=== PATIENT | female | born 1970 | race Caucasian/White ===

== ENCOUNTER 2021-01-25 07:13 | Outpatient (CLI) | payer OTHER, SELFPAY ==
--- NOTE | ~2021-01-25 | US_ITS ---
EXAMINATION: US transvaginal EXAM DATE: 01/25/2021 07:46 INDICATION: Post menopausal bleeding. TECHNIQUE: Pelvic transvaginal sonogram was performed. There are multiple grayscale and Doppler imag es available for interpretation. Comparison is made to prior examination from 07/07/2013. FINDINGS: Uterus measures 7.5 x 3.5 x 4.6 cm, scattered small fibroids measuring up to 1.2 cm. Endom etrial stripe measures 4-5 mm, within normal limits. There is no free pelvic fluid. Right adnexa: The ovary measures 5.2 x 3.1 x 4.4 cm, with complex cystic region measuring 3.9 x 3.0 x 4.0 cm, some layering protein or blood products inside. Differential diagnosis includes hemorrhagic cyst, endometrioma, less likely cystic neoplasm. Ovarian vascular flow confirmed. Left adnexa: The ovary measures 1.8 x 1.2 x 2.0 cm and is morphologically normal. Ovarian vascular fl ow confirmed. IMPRESSION: 1. Small fibroids. Normal endometrial thickness. 2. Right adnexal complex cystic lesion. Recommend 6-12 week follow-up pelvic sonogram. Reviewed, dictated and finalized at location A.
== END 2021-01-25 07:14 ==
PROVIDERS: Visit Provider Nurse Practitioner
DX: N95.0 Postmenopausal bleeding (principal); D25.9 Leiomyoma of uterus, unspecified
CPT/HCPCS: 76830

== ENCOUNTER 2021-03-17 02:43 | Day surgery (SDC) | payer OTHER, SELFPAY ==
[2021-03-12 13:59] VITALS: BMI 25.7
[2021-03-17 07:48] VITALS: BP 122/70; PULSE 72; RESP 20; TEMP 36.3; O2SAT 100
[2021-03-17] MEDS: ACETAMINOPHEN 500 MG TABLET 1000 MG PO (08:16)
[2021-03-17] MEDS: LACTATED RINGERS 1,000 ML 30 ML IV CONT (08:25)
--- NOTE | 2021-03-17 08:34 | WPDANESEPPF ---
Anes - Initial Pre Proc Eval Procedure: Operation Date: 03/17/21 09:45 Proposed Procedures p Hysteroscopy Dilation and Curettage - Francoise Carrizales MD Date/Time: 03/17/21 08:34 Surgeon: Francoise Carrizales MD Pre Op Diagnosis: post menopausal bleeding Patient Data Age: 50 Gender: F Height: 1.63 m Weight: 69.3 kg Last Vital Signs Temp 36.3 C L 03/17/21 07:48 Pulse 72 03/17/21 07:48 Resp 20 03/17/21 07:48 BP 122/70 03/17/21 07:48 Pulse Ox 100 03/17/21 07:48 Allergies Allergy/AdvReac Type Severity Reaction Status Date / Time bee venom protein (honey bee) Allergy Severe Anaphylaxis Verified 03/17/21 08:10 [bees] Cephalosporins Allergy Severe Hives Verified 03/17/21 08:10 Home Medications Medication Instructions Recorded Confirmed Type cyanocobalamin (vitamin B-12) 1,000 mcg IM MONTHLY 03/12/21 03/17/21 History epinephrine 0.3 mg IM PRN PRN 03/12/21 03/12/21 History misoprostol 200 mcg PO DAILY 03/12/21 03/17/21 History Patient hx anesthesia problems: none Family hx anesthesia problems: none PMFSH Past Medical History Medical History (Updated 03/17/21 @ 08:34 by Usman Pizarro MD) Endometriosis Overweight Surgical History Surgical History (Updated 03/17/21 @ 08:35 by Usman Pizarro MD) H/O laparoscopy Social History Social History Smoking status: Never smoker Alcohol intake: current Alcohol use details: 2 PER YEAR Substance use: never Living arrangements: with family Anes - Eval Final PreProcedure Day of Procedure 03/17/21 08:34 Patient weight: overweight Heart: regular rate and rhythm Lungs: clear to auscultation Airway: Mallampati scale class II Neurological: alert and oriented Last oral intake: >/= 8 hours ASA classification: II Emergent: no Anesthetic plan: proceed Anesthesia type and monitoring: general GIVS and standard monitoring Informed Consent: The patient's anesthetic plan and its attendant risks and benefits were discussed with the patient/family/POA. Questions were solicited and answers provided to the satisfaction of the patient/family/POA.
--- NOTE | 2021-03-17 08:53 | WPDHPUPDATE1 ---
History and Physical Update Update Date/Time: 03/17/21 08:53 History and Physical has been reviewed, including an updated exam of the patient. There are NO changes in the patient's condition. Risks, benefits, and alternatives have been discussed and questions answered. Patient agrees to proceed with procedure.
--- NOTE | 2021-03-17 08:53 | PM.HPGS ---
History of Present Illness History of Present Illness Consent: Risks, benefits, and alternatives have been discussed and questions answered. Patient agrees to proceed with procedure. Chief complaint: post menopausal bleeding Narrative: Ember Benjamin is a 50 year old female with postmenopausal bleeding. Pelvic ultrasound reveals a slightly thickened endometrium 4 to 5 mm. The ultrasound also reveals small scattered fibroids up to 1.2cm. It was recommended to proceed with hysteroscopy D& C. Risks of infection, bleeding, perforation, and possible pathology were reviewed. Patient voices understanding and agrees to proceed. Review of Systems Review of Systems: not repeated day of surgery; patient states no changes in status PMFSH Past Medical History Medical History (Updated 03/17/21 @ 08:56 by Francoise Carrizales MD) (normal spontaneous vaginal delivery) x 3 Surgical History Surgical History (Updated 03/17/21 @ 08:55 by Francoise Carrizales MD) H/O hand surgery H/O laparoscopy S/P breast biopsy S/P endometrial ablation Social History Social History Smoking status: Never smoker Alcohol intake: current Alcohol use details: 2 PER YEAR Substance use: never Living arrangements: with family Meds Home Medications and Allergies Home Medications Medication Instructions Recorded Confirmed Type cyanocobalamin (vitamin B-12) 1,000 mcg IM MONTHLY 03/12/21 03/17/21 History epinephrine 0.3 mg IM PRN PRN 03/12/21 03/12/21 History misoprostol 200 mcg PO DAILY 03/12/21 03/17/21 History Allergies Allergy/AdvReac Type Severity Reaction Status Date / Time bee venom protein (honey bee) Allergy Severe Anaphylaxis Verified 03/17/21 08:10 [bees] Cephalosporins Allergy Severe Hives Verified 03/17/21 08:10 Vital Signs Vital Signs - 24 hr 03/17/21 07:48 Temperature 97.3 F L Pulse Rate 72 Respiratory Rate 20 Blood Pressure 122/70 Pulse Oximetry 100 Exam Const: General: healthy appearing and alert Orientation/consciousness: patient oriented x3 GI: GI Palp: Yes Soft to palpation, No Tenderness to palpation present (GI) and No Palpable mass present : External Female Exam: normal external appearance Speculum Exam - Vagina: normal appearance of the vagina and normal vaginal discharge Speculum Exam - Cervix: normal appearance of the cervix Bimanual exam- vagina & uterus: uterine size normal and consistency normal Bimanual Exam- Adnexa, other: normal adnexae and No adnexal tenderness Neuro: General: patient oriented x3 Assessment and Plan Assessment and plan (1) Post-menopausal bleeding: Code(s): N95.0 - Postmenopausal bleeding Status: Acute Assessment and Plan: Plan to proceed with hysteroscopy and D&C
--- NOTE | 2021-03-17 09:56 | P.OP_ITS ---
Procedure Note - Detailed Date of Procedure 03/17/21 Pre-op Diagnosis post menopausal bleeding cervical stenosis Post-op Diagnosis same Procedure Performed Hysteroscopy D&C Surgeon Francoise Carrizales MD Anesthesia MAC and local Findings internal os is extremely stenotic; uterine cavity appears very scarred and sounds to 7cm Description of Procedure the patient is taken to the operating room and placed under anesthesia in the dorsal lithotomy position. She is prepped and draped in usual sterile fashion. [place] speculum was placed in the vagina and cervix is grasped on the anterior lip with a tenaculum. The cervix is serially injected with 1% lidocaine in each quadrant. The uterus is tented to be sounded and at 3cm stenosis is noted. The os Finders are used and the uterus is then sounded to 7cm the cervix was serially dilated with Hegars. The diagnostic hysteroscope was placed with a severely scarred cavity noted with no fibroids visible or lesions noted. The hysteroscope was removed and the uterus responded to 7cm the medium sharp cu rette is used to sharply curette the endometrium with minimal material obtained consistent with the scarred and atrophic appearance. All instruments were then removed. The patient's to recovery in stable condition. Sponge, needle, and instrument counts are correct per the OR staff. Estimated Blood Loss 5 Drains No Packing No Pathology yes ( Endometrial curettings) Complications No immediate complications ( there is a 400cc deficit of fluid) Condition stable Disposition PACU
[2021-03-17 10:00] VITALS: BP 100/65; PULSE 63; RESP 12; O2SAT 94
[2021-03-17 10:15] VITALS: BP 115/73; PULSE 59; RESP 16
[2021-03-17] MEDS: oxyCODONE HCL (*CRX) 5 MG TAB IR PO (10:26)
[2021-03-17 10:30] VITALS: BP 113/75; PULSE 66; RESP 16
[2021-03-17 10:45] VITALS: BP 110/75; PULSE 62; RESP 16
== END 2021-03-17 10:55 | disposition home or self-care (01) ==
PROVIDERS: PCP Internal Medicine; Visit Provider Obstetrics & Gynecology Gynecology
PROC: 0U5B8ZZ Destruction of Endometrium, Via Natural or Artificial Opening Endoscopic (ICD-10-PCS; CPT 58563; principal; 2021-03-17 09:45)
DX: N95.0 Postmenopausal bleeding (principal); N88.2 Stricture and stenosis of cervix uteri
CPT/HCPCS: 58558; 88305; A9270; J1100; J2250; J2405; J2704; J3010; J7030; J7120

== ENCOUNTER → 2021-05-10 08:33 | Outpatient (CLI) | payer OTHER, SELFPAY ==
--- NOTE | ~2021-05-10 | US_ITS ---
EXAMINATION: US transvaginal DATE: 05/10/2021 09:20 INDICATION: Right ovarian cyst Comparison:Ultrasound dated 01/25/2021 TECHNIQUE: Multiple endovaginal sonographic images of the pelvis performed. FINDINGS: The uterus measures 6.3 x 3 x 3.2 cm. There is multiple small hypoechoic masses of the uter us measuring up to 9 mm, compatible with uterine fibroids. The endometrial complex measures 2. The right ovary measures 2 x 1.4 x 3.1 cm and the left ovary is not visualized. There are small folli cles in each ovary. Normal doppler signal in both ovaries. There is no free fluid in the pelvis. There are no abnormal masses seen on either side. IMPRESSION: 1. Interval resolution of right adnexal cyst. 2: Small uterine fibroids measuring up to 9 mm maximum dimension. Reviewed, dictated and finalized at location A.
== END ==
PROVIDERS: PCP Internal Medicine; Visit Provider Nurse Practitioner
DX: N83.201 Unspecified ovarian cyst, right side (principal); D25.9 Leiomyoma of uterus, unspecified
CPT/HCPCS: 76830

== ENCOUNTER 2022-07-08 13:15 | Outpatient (CLI) | payer OTHER, SELFPAY ==
--- NOTE | ~2022-07-08 | DEXA_ITS ---
Bone Density Report Name: NAT LUGO Age: 52 Sex: Female Ethnicity: White Date of : 1970 Indication: postmenopausal; screening for osteoporosis; Referring Provider: VASILE SIMS Study: Bone densitometry was performed. Exam Date: July 08, 2022 Accession number: [id number] Bone Density: Region BMD T-score Z-score Classification AP Spine (L1-L4) 0.944 -0.9 0.0 Normal Femoral Neck (Left) 0.680 -1.5 -0.6 Osteopenia Total Hip (Left) 0.845 -0.8 -0.2 Normal Femoral Neck (Right) 0.697 -1.4 -0.4 Osteopenia Total Hip (Right) 0.853 -0.7 -0.1 Normal Total Hip Mean 0.849 -0.8 -0.2 Normal World Health Organization criteria for BMD impression classify patients as: Normal (T-score at or above -1.0), Osteopenia (T-score between -1.0 and -2.5), or Osteoporosis (T-score at or below -2.5). 10-year Fracture Risk(1): Major Osteoporotic Fracture 6.0% Hip Fracture 0.5% Reported Risk Factors: [place] (), Neck BMD=0.680, BMI=25.9 (1) FRAX(R) Version 3.08. Fracture probability calculated for an untreated patient. Fracture probability may be lower if the patient has received treatment. Clinical Information Provided by Patient: Patient maximum height was 64.0 Menopause Age: 49 No regular weight bearing exercise Drinks caffeinated beverages Onset of menses at age 13 Number of children 3 Impression: The patient has low bone mass, based on the Left Femoral Neck T-score. The patient has an estimated ten-year risk of hip fracture of 0.5% and an estimated ten-year risk of major fracture of 6%, based on the WHO FRAX algorithm. Discussion: BONE DENSITY IS LOW AT ONE OR MORE SKELETAL SITES. This patient's lowest T-score is low at one or more skeletal sites. It meets the World Health Organization's (WHO) criteria for ?low bone mass? (T-score between -1.0 and -2.5). The patient's 10-year risk of fracture as calculated by FRAX is less than the threshold where pharmacological therapy is recommended by the National Osteoporosis Foundation (NOF). However, all treatment decisions require clinical judgment and consideration of individual patient factors, including patient preferences, comorbidities, previous drug use, risk factors not captured in the FRAX model (e.g., frailty, falls, vitamin D deficiency, increased bone turnover, interval significant decline in bone density) and possible under or overestimation of fracture risk by FRAX. The patient should follow a healthful lifestyle (good nutrition with adequate calcium and vitamin D, and appropriate weight-bearing exercise). Follow-Up: Consider repeating this study in 2 to 3 years to reassess this patient's status, or sooner if there is some new clinical indication. Reported by: MICKIE on 07/08/2022 1:45:00 PM.
== END 2022-07-08 13:16 ==
PROVIDERS: PCP Internal Medicine; Visit Provider Obstetrics & Gynecology Gynecology
DX: Z78.0 Asymptomatic menopausal state (principal); M85.852 Other specified disorders of bone density and structure, left thigh; M85.851 Other specified disorders of bone density and structure, right thigh
CPT/HCPCS: 77080

== ENCOUNTER 2025-05-25 10:03 | Outpatient (CLI) | payer OTHER, SELFPAY ==
--- NOTE | ~2025-05-25 | XR_ITS ---
XR lumbar spine 2-3V Indication: M54.50 - Low back pain, unspecified Comparison: None Findings: The vertebral heights are intact. No fracture or subluxation. The disc heights are intact. Soft tissues unremarkable Impression: No acute abnormality. Reviewed, dictated and finalized at location P. Impression: No acute abnormality.
== END 2025-05-25 10:04 | disposition home or self-care (01) ==
LOC: MICIMG 10:04
PROVIDERS: PCP Nurse Practitioner Family; Visit Provider Nurse Practitioner Family
DX: M54.50 Low back pain, unspecified (principal)
CPT/HCPCS: 72100

== ENCOUNTER 2025-05-29 13:17 | Outpatient (CLI) | payer OTHER, SELFPAY ==
--- NOTE | ~2025-05-29 | US_ITS ---
EXAMINATION: US transvaginal, 05/29/2025 13:19 ZIGZAGGER HISTORY: L pelvic pain Comparison: None Technique: Merrill-scale and color Doppler images were obtained. Findings: Uterus: Uterus anteverted 6.2 x 2.7 x 3.4 cm. . Endometrium 3 mm. Right Ovary:Right ovary not clearly identified due to bowel gas. Left Ovary: Left ovary not clearly identified due to bowel gas. Free Fluid: None Impression: No etiology to explain the patient's symptoms Reviewed, dictated and finalized at location P. AGGER Impression: No etiology to explain the patient's symptoms
== END 2025-05-29 13:18 | disposition home or self-care (01) ==
LOC: MICIMG 13:18
PROVIDERS: PCP Nurse Practitioner Family
DX: Z13.820 Encounter for screening for osteoporosis (principal); Z78.0 Asymptomatic menopausal state; R10.22 Pelvic and perineal pain left side
CPT/HCPCS: 76830

== ENCOUNTER 2025-07-04 11:00 | Outpatient (CLI) | payer OTHER, SELFPAY ==
--- NOTE | ~2025-07-04 | DEXA_ITS ---
Bone Density Report Name: NAT LUGO Age: 55 Sex: Female Ethnicity: White Date of : 1970 Indication: postmenopausal; screening for osteoporosis; Referring Provider: MARTHA, CHKAA Miller Study: Bone densitometry was performed. Exam Date: July 04, 2025 Accession number: [id number] Bone Density: Region BMD T-score Z-score Classification AP Spine(L1-L4) 0.867 -1.6 -0.5 Osteopenia Femoral Neck (Left) 0.662 -1.7 -0.6 Osteopenia Total Hip (Left) 0.815 -1.0 -0.3 Normal Femoral Neck (Right) 0.633 -1.9 -0.8 Osteopenia Total Hip (Right) 0.782 -1.3 -0.6 Osteopenia Total Hip Mean 0.799 -1.2 -0.5 Osteopenia World Health Organization criteria for BMD impression classify patients as: Normal (T-score at or above -1.0), Osteopenia (T-score between -1.0 and -2.5), or Osteoporosis (T-score at or below -2.5). 10-year Fracture Risk(1): Major Osteoporotic Fracture 7.9% Hip Fracture 0.9% Reported Risk Factors: [place] (), Neck BMD=0.633, BMI=27.3 (1) FRAX(R) Version 3.08. Fracture probability calculated for an untreated patient. Fracture probability may be lower if the patient has received treatment. Previous Exams: -- Region Exam Age BMD T-score BMD Change BMD Change Date g/cm2 vs Baseline vs Previous -- AP Spine (L1-L4) 07/04/2025 55 0.867 -1.6 -8.2%* -8.2%* 07/08/2022 52 0.944 -0.9 Total Hip(Left) 07/04/2025 55 0.815 -1.0 -3.5%* -3.5%* 07/08/2022 52 0.845 -0.8 Total Hip(Right) 07/04/2025 55 0.782 -1.3 -8.3%* -8.3%* 07/08/2022 52 0.853 -0.7 -- *Denotes significance at 95% confidence level, LSC for AP Spine = 0.022 g/cm2, LSC for Total Hip = 0.027 g/cm2 Clinical Information Provided by Patient: Has used the following medications: Vitamin D Patient maximum height was 64 Menopause Age: 49 Drinks caffeinated beverages Onset of menses at age 11 Number of children 3 Impression: The patient has low bone mass, based on the Right Femoral Neck T-score. The patient has an estimated ten-year risk of hip fracture of 0.9% and an estimated ten-year risk of major fracture of 7.9%, based on the WHO FRAX algorithm. The BMD for the AP Spine (L1-L4) decreased, changing by -8.2% since the last DXA exam. The BMD for the Total Hip(Left) decreased, changing by -3.5% since the last DXA exam. The BMD for the Total Hip(Right) decreased, changing by -8.3% since the last DXA exam. Discussion: BONE DENSITY IS LOW AT ONE OR MORE SKELETAL SITES. This patient's lowest T-score is low at one or more skeletal sites. It meets the World Health Organization's (WHO) criteria for ?low bone mass? (T-score between -1.0 and -2.5). The patient's 10-year risk of fracture as calculated by FRAX is less than the threshold where pharmacological therapy is recommended by the National Osteoporosis Foundation (NOF). However, all treatment decisions require clinical judgment and consideration of individual patient factors, including patient preferences, comorbidities, previous drug use, risk factors not captured in the FRAX model (e.g., frailty, falls, vitamin D deficiency, increased bone turnover, interval significant decline in bone density) and possible under or overestimation of fracture risk by FRAX. The patient should follow a healthful lifestyle (good nutrition with adequate calcium and vitamin D, and appropriate weight-bearing exercise). Follow-Up: Consider repeating this study in 2 years to reassess this patient's status, or sooner if there is some new clinical indication. Reported by: BENJAMIN on 07/04/2025 11:17:00 AM. Reviewed, dictated and finalized at location A.
== END 2025-07-04 11:01 | disposition home or self-care (01) ==
LOC: MICIMG 11:01
DX: Z78.0 Asymptomatic menopausal state (principal); Z13.820 Encounter for screening for osteoporosis; M85.852 Other specified disorders of bone density and structure, left thigh; M85.851 Other specified disorders of bone density and structure, right thigh
CPT/HCPCS: 77080

== ENCOUNTER 2025-07-13 13:46 | Outpatient (CLI) | payer OTHER, SELFPAY ==
--- NOTE | ~2025-07-13 | US_ITS ---
EXAMINATION: US transvaginal INDICATION: Pelvic pain Comparison:No prior studies for comparison. TECHNIQUE: Multiple endovaginal sonographic images of the pelvis performed. FINDINGS: The uterus measures 6.2 x 2.7 x 3.4 cm. The endometrial complex measures 3 mm. The ovaries are not definitely visualized. No adnexal masses. There is no free fluid in the pelvis. There are no abnormal masses seen on either side. IMPRESSION: 1. Unremarkable pelvic ultrasound. Reviewed, dictated and finalized at location O. NING MANAGER
== END 2025-07-13 13:47 | disposition home or self-care (01) ==
LOC: MICIMG 13:47
PROVIDERS: PCP Obstetrics & Gynecology Gynecology; Visit Provider Obstetrics & Gynecology Gynecology
DX: R10.20 Pelvic and perineal pain unspecified side (principal)
CPT/HCPCS: 76830